=== PATIENT | female | born 1985 | race Caucasian/White ===

== ENCOUNTER → 2019-05-13 | Outpatient (CLI) | payer SELFPAY | END | disposition home or self-care (01) | DX: O20.0 Threatened abortion (principal) | CPT/HCPCS: 36415; 84702 ==

== ENCOUNTER → 2019-05-15 | Outpatient (CLI) | payer SELFPAY | END | disposition home or self-care (01) | LOC: LABWHC1 15:29 | PROVIDERS: ATTEND Obstetrics & Gynecology | DX: O03.9 Complete or unspecified spontaneous abortion without complication (principal) | CPT/HCPCS: 36415; 84702 ==

== ENCOUNTER → 2019-09-04 | Outpatient (CLI) | payer SELFPAY | END | disposition home or self-care (01) | LOC: LABWHC1 07:38 | PROVIDERS: ATTEND Obstetrics & Gynecology | DX: O20.0 Threatened abortion (principal) | CPT/HCPCS: 36415; 84702 ==

== ENCOUNTER → 2019-09-06 | Outpatient (CLI) | payer BC | END | disposition home or self-care (01) | LOC: LABWHC1 08:11 | PROVIDERS: ATTEND Obstetrics & Gynecology | DX: O20.0 Threatened abortion (principal) | CPT/HCPCS: 36415; 84702 ==

== ENCOUNTER → 2019-09-13 | Outpatient (CLI) | payer BC | END | disposition home or self-care (01) | LOC: LABWHC1 09:29 | PROVIDERS: ATTEND Obstetrics & Gynecology | DX: Z34.82 Encounter for supervision of other normal pregnancy, second trimester (principal); Z3A.00 Weeks of gestation of pregnancy not specified | CPT/HCPCS: 36415; 84702 ==

== ENCOUNTER → 2019-09-20 | Outpatient (CLI) | payer BC | END | disposition home or self-care (01) | LOC: LABWHC1 09:41 | PROVIDERS: ATTEND Obstetrics & Gynecology | DX: Z34.82 Encounter for supervision of other normal pregnancy, second trimester (principal) | CPT/HCPCS: 36415; 84702 ==

== ENCOUNTER → 2019-09-27 | Outpatient (CLI) | payer BC | END | disposition home or self-care (01) | LOC: LABWHC1 10:34 | PROVIDERS: ATTEND Obstetrics & Gynecology | DX: O03.9 Complete or unspecified spontaneous abortion without complication (principal) | CPT/HCPCS: 36415; 84702 ==

== ENCOUNTER 2022-12-07 06:06 | Inpatient (IN) | payer BC ==
[2022-12-05 10:33] VITALS: BMI 29.4
[2022-12-07] MEDS ORDERED: LACTATED RINGERS 1,000 ML IV ONE (06:10)
[2022-12-07] MEDS ORDERED: TRANEXAMIC 1,000 MG/100ML-NACL 1,000 MG in EMPTY BAG 1 BAG IV PRN (06:10)
[2022-12-07] MEDS ORDERED: METHYLERGONOVINE 0.2 MG/ML 1 ML AMP IM PRN (06:10)
[2022-12-07] MEDS ORDERED: OXYTOCIN 10 UNIT/ML 1 ML VIAL IM PRN (06:10)
[2022-12-07] MEDS ORDERED: CARBOPROST TROMETHAMINE 250 MCG/ML 1 ML AMP IM PRN (06:10)
[2022-12-07] MEDS ORDERED: miSOPROStoL 200 MCG TAB PO PRN (06:10)
[2022-12-07] MEDS ORDERED: CITRIC ACID-SODIUM CITRATE 15 ML CUP PO ONE (06:10)
[2022-12-07 06:43] LABS: Basophils % (A) 0 %; Eosinophils # (A) 0.2 k/uL (0-0.7); Eosinophils % (A) 2 %; HCT 34.8 % (34.0-46.0); HGB 11.9 gm/dL (11.4-16.0); Lymphocytes # (A) 2.3 k/uL (1.0-4.8); Lymphocytes % (A) 25 %; MCH 31.6 pg (25.0-35.0); MCHC 34.1 g/dL (31.0-37.0); MCV 92.6 fL (80.0-100.0); Mean Platelet Volume 11.9; Monocytes # (A) 0.4 k/uL (0-1.0); Monocytes % (A) 4 %; Neutrophils # (A) 6.2 k/uL (1.3-7.7); Neutrophils % (A) 66 %; Platelet Count 184 k/uL (150-450); RBC 3.76 m/uL (3.80-5.40); RDW 13.7 % (11.5-15.5); WBC 9.3 k/uL (3.8-10.6)
--- NOTE | 2022-12-07 07:13 | P.HPOB ---
History of Present Illness H&P Date: 12/07/22 Chief Complaint: Repeat low transverse with tubal ligation 37-year-old presents at 39 weeks and 6 days for repeat low transverse C- section with tubal ligation. Review of Systems All systems: negative Constitutional: Denies chills, Denies fever Eyes: denies blurred vision, denies pain Ears, nose, mouth and throat: Denies headache, Denies sore throat Cardiovascular: Denies chest pain, Denies shortness of breath Respiratory: Denies cough Gastrointestinal: Denies abdominal pain, Denies diarrhea, Denies nausea, Denies vomiting Genitourinary: Denies dysuria, Denies hematuria Musculoskeletal: Denies myalgias Integumentary: Denies pruritus, Denies rash Neurological: Denies numbness, Denies weakness Psychiatric: Denies anxiety, Denies depression Endocrine: Denies fatigue, Denies weight change Past Medical History Past Medical History: GERD/Reflux Additional Past Medical History / Comment(s): seasonal allergies History of Any Multi-Drug Resistant Organisms: None Reported Past Surgical History: Appendectomy, Section Additional Past Surgical History / Comment(s): wisdom teeth removed Past Anesthesia/Blood Transfusion Reactions: No Reported Reaction Additional Past Anesthesia/Blood Transfusion Reaction / Comment(s): no hx blood transfusion Past Psychological History: Depression Smoking Status: Former smoker Past Alcohol Use History: None Reported Additional Past Alcohol Use History / Comment(s): smoked 10 years 1/2-1 ppd quit once Past Drug Use History: None Reported - Past Family History Father Family Medical History: Cancer, Coronary Artery Disease (CAD), Deep Vein Thrombosis (DVT), Vascular Disorder Additional Family Medical History / Comment(s): hx throat cancer Medications and Allergies Home Medications Medication Instructions Recorded Confirmed Type Pnv,Calcium 72/Iron/Folic Acid 1 tab PO DAILY 12/07/15 12/07/22 History [ Plus Tablet] Ascorbic Acid [Vitamin C] 500 mg PO DAILY 12/05/22 12/07/22 History Cyanocobalamin (Vitamin B-12) 1,000 mcg PO DAILY 12/05/22 12/07/22 History [Vitamin B-12] Magnesium 500 mg PO DAILY 12/05/22 12/07/22 History Sertraline [Zoloft] 50 mg PO DAILY 12/05/22 12/07/22 History Allergies Allergy/AdvReac Type Severity Reaction Status Date / Time No Known Allergies Allergy Verified 12/07/22 06:47 Exam Osteopathic Statement: *. No significant issues noted on an osteopathic structural exam other than those noted in the History and Physical/Consult. Vital Signs Temp Pulse Resp BP 12/07/22 06:29 97.4 F L 70 16 141/83 Intake and Output 12/06/22 12/07/22 12/07/22 22:59 06:59 14:59 Other: Weight 80.286 kg Heart: Regular rate and rhythm Lungs: Clear to auscultation bilaterally Abdomen: Soft, nontender Extremities: Negative Homans sign Results Result Diagrams: 12/07/22 06:25 Abnormal Lab Results - Last 24 Hours (Table) 12/07/22 Range/Units 06:25 RBC 3.76 L (3.80-5.40) m/uL Assessment and Plan (1) Previous section Current Visit: Yes Status: Acute Code(s): Z98.891 - HISTORY OF UTERINE SCAR FROM PREVIOUS SURGERY SNOMED Code(s): 862082814 (2) Family planning Current Visit: Yes Status: Acute Code(s): Z30.09 - ENCOUNTER FOR OTH GENERAL CNSL AND ADVICE ON CONTRACEPTION SNOMED Code(s): 737723485 Plan: 1. Repeat low transverse with tubal ligation
[2022-12-07] MEDS ORDERED: OXYTOCIN 30 UNITS/500 ML NS BAG IV ONE (08:00)
[2022-12-07] MEDS ORDERED: KETOROLAC 15 MG/ML 1 ML VIAL ONE (08:00)
[2022-12-07] MEDS ORDERED: ONDANSETRON 4 MG/2 ML VIAL ONE (08:00)
[2022-12-07] MEDS ORDERED: ePHEDrine 50 MG/ML 1 ML VIAL ONE (08:00)
[2022-12-07] MEDS ORDERED: MORPHINE SULFATE (PF) 0.3 MG/0.3 ML SYR ONE (08:00)
[2022-12-07 09:24] LABS: Large Platelets Present
[2022-12-07 09:26] LABS: RBC Morphology Normal
[2022-12-07] MEDS ORDERED: diphenhydrAMINE 50 MG CAP PO PRN (10:52)
[2022-12-07] MEDS ORDERED: NALOXONE 0.4 MG/ML 1 ML VIAL IV PRN (10:52)
[2022-12-07] MEDS ORDERED: METOCLOPRAMIDE 5 MG/ML 2 ML VIAL IVP PRN (10:52)
[2022-12-07] MEDS ORDERED: diphenhydrAMINE 50 MG/ML 1 ML VIAL IVP PRN ×2 (10:52)
[2022-12-07] MEDS ORDERED: ZOLPIDEM 5 MG TAB PO PRN (10:52)
[2022-12-07] MEDS ORDERED: ONDANSETRON 4 MG/2 ML VIAL IVP PRN (10:52)
[2022-12-07] MEDS ORDERED: diphenhydrAMINE 25 MG CAP PO PRN (10:52)
[2022-12-07] MEDS ORDERED: SIMETHICONE 80 MG CHEWABLE PO PRN (10:52)
[2022-12-07 11:53] LABS: ALT 17 U/L (4-34); AST 28 U/L (14-36); African American GFR (CKD) >90 (>60 ml/min/1.73 sqM); Blood Urea Nitrogen 7 mg/dL (7-17); LDH 219 U/L (120-246); Non-African American GFR(CKD) >90 (>60 ml/min/1.73 sqM); Uric Acid 3.2 mg/dL (3.7-7.4)
[2022-12-07 11:59] LABS: Appearance,Urine Clear (Clear); Bilirubin,Urine Negative (Negative); Blood,Urine Negative (Negative); Color,Urine Colorless; Glucose,Urine (UA) Negative (Negative); Ketones,Urine Negative (Negative); Leukocyte Esterase,Urine Negative (Negative); Nitrite,Urine Negative (Negative); Protein,Urine Negative (Negative); Specific Gravity,Urine 1.008 (1.001-1.035); Urobilinogen,Urine <2.0 mg/dL (<2.0)
[2022-12-07 12:17] LABS: Creatinine,Urine Random 34.6 mg/dL; Protein/Creatinine Ratio,Urine 0.578
[2022-12-07] MEDS: ACETAMINOPHEN TAB 500 MG TAB PO SCH ×2 (12:34→18:09)
[2022-12-07] MEDS: IBUPROFEN 600 MG TAB PO SCH ×2 (15:28→21:07)
[2022-12-07] MEDS: LACTATED RINGERS 1,000 ML IV SCH ×2 (15:28→20:04)
[2022-12-07] MEDS: KETOROLAC 15 MG/ML 1 ML VIAL IVP SCH ×2 (15:30→21:36)
[2022-12-07] MEDS: SENNOSIDES-DOCUSATE SODIUM 1 EACH TAB PO SCH (21:07)
[2022-12-08] MEDS: ACETAMINOPHEN TAB 500 MG TAB PO SCH ×5 (00:14→22:57)
[2022-12-08] MEDS: IBUPROFEN 600 MG TAB PO SCH ×4 (03:39→19:55)
[2022-12-08 06:52] LABS: Basophils % (A) 0 %; Eosinophils # (A) 0.2 k/uL (0-0.7); Eosinophils % (A) 2 %; HCT 34.2 % (34.0-46.0); HGB 11.3 gm/dL (11.4-16.0); Lymphocytes # (A) 1.9 k/uL (1.0-4.8); Lymphocytes % (A) 20 %; MCH 31.2 pg (25.0-35.0); MCHC 33.1 g/dL (31.0-37.0); MCV 94.3 fL (80.0-100.0); Monocytes # (A) 0.4 k/uL (0-1.0); Monocytes % (A) 5 %; Neutrophils # (A) 6.8 k/uL (1.3-7.7); Neutrophils % (A) 72 %; Platelet Count 158 k/uL (150-450); RBC 3.62 m/uL (3.80-5.40); RDW 13.8 % (11.5-15.5); WBC 9.4 k/uL (3.8-10.6)
--- NOTE | 2022-12-08 07:31 | P.PNOBGPC ---
Subjective - Subjective Principal diagnosis: Status post repeat low transverse postop day 1 Interval history: Patient seen and examined. Denies nausea, vomiting, chest pain, shortness of breath or calf pain. Patient reports: Reports appetite normal, Reports voiding normally, Reports pain well controlled, Reports ambulating normally : doing well Objective - Vital Signs Latest vital signs: Vital Signs Temp Pulse Resp BP Pulse Ox 12/08/22 04:00 98 F 85 18 129/78 96 12/08/22 00:15 98 F 71 18 132/84 96 12/07/22 19:58 97.7 F 73 18 138/82 98 12/07/22 15:40 98.1 F 67 16 147/88 98 12/07/22 12:00 70 139/73 12/07/22 10:50 97.8 F 68 16 145/78 99 12/07/22 10:20 64 16 150/83 100 12/07/22 09:50 76 16 156/92 99 12/07/22 09:35 81 16 138/65 96 12/07/22 09:20 82 16 151/77 97 12/07/22 09:05 88 16 152/77 97 12/07/22 08:50 96.5 F L 72 16 138/82 99 Intake and Output 12/07/22 12/08/22 12/08/22 22:59 06:59 14:59 Intake Total 1000 Output Total 2200 Balance -1200 Intake: IV 1000 Invasive Line 1 1000 Output: Urine 2200 Uretheral (Umaña) 1000 Other: # Voids 1 2 - Exam Lungs: bilateral: normal Chest: Normal S1, Normal S2 Extremities: Present: normal Abdomen: Present: normal appearance, soft. Absent: distention, tenderness Incision: Present: normal, dry, intact Uterus: Present: normal, firm - Labs Labs: Abnormal Lab Results - Last 24 Hours (Table) 12/07/22 12/08/22 Range/Units 11:22 06:43 RBC 3.62 L (3.80-5.40) m/uL Hgb 11.3 L (11.4-16.0) gm/dL Creatinine 0.43 L (0.52-1.04) mg/dL Uric Acid 3.2 L (3.7-7.4) mg/dL Assessment and Plan (1) Previous section Current Visit: Yes Status: Resolved Code(s): Z98.891 - HISTORY OF UTERINE SCAR FROM PREVIOUS SURGERY SNOMED Code(s): 414117120 (2) Family planning Current Visit: Yes Status: Resolved Code(s): Z30.09 - ENCOUNTER FOR OT GENERAL CNSL AND ADVICE ON CONTRACEPTION SNOMED Code(s): 408020793 (3) Status post repeat low transverse section Current Visit: Yes Status: Acute Code(s): Z98.891 - HISTORY OF UTERINE SCAR FROM PREVIOUS SURGERY SNOMED Code(s): 522762461 (4) Status post tubal ligation at time of delivery, current hosp Current Visit: Yes Status: Acute Code(s): O80 - ENCOUNTER FOR FULL-TERM UNCOMPLICATED DELIVERY; Z30.2 - ENCOUNTER FOR STERILIZATION SNOMED Code(s): 54326652533409 Plan: 1. Increase ambulation 2. By mouth pain meds
[2022-12-08] MEDS: SENNOSIDES-DOCUSATE SODIUM 1 EACH TAB PO SCH ×2 (08:19→19:55)
--- NOTE | 2022-12-08 08:58 | P.PN ---
Progress Note - Text Progress Note Date: 12/08/22 (710) Anesthesia Postop day 1 Subjective: Status Post section with Duramorph. Doing well without complaint. VAS 3/10. Denies. Afebrile. Gross lower extremity strength intact. Without apparent anesthetic complications. Assessment: Status post with Duramorph postop day 1 Plan: Continue current care with your medical management. Anticipated and the Duramorph section around time today. You may see increased pain needs around this time.
[2022-12-08] MEDS ORDERED: LABETALOL 100 MG TAB PO SCH (16:05)
[2022-12-08] MEDS: LABETALOL 100 MG TAB PO SCH (21:47)
[2022-12-09] MEDS: IBUPROFEN 600 MG TAB PO SCH ×2 (02:04→08:08)
[2022-12-09] MEDS: ACETAMINOPHEN TAB 500 MG TAB PO SCH (05:02)
[2022-12-09 08:36] VITALS: BP 143/80; PULSE 66; RESP 16; TEMP 98
--- NOTE | 2022-12-09 08:42 | P.DS ---
Providers Date of admission: 12/07/22 06:06 Expected date of discharge: 12/09/22 Attending physician: Kitty Flynn Primary care physician: Stated None - Discharge Diagnosis(es) (1) Previous section Current Visit: Yes Status: Resolved (2) Family planning Current Visit: Yes Status: Resolved (3) Status post repeat low transverse section Current Visit: Yes Status: Acute (4) Status post tubal ligation at time of delivery, current hosp Current Visit: Yes Status: Acute Hospital Course: Pt presented for RLTCS with TL. She underwent this procedure with no complications. Post operative course was uneventful. She denies N/V, CP, SOB or calf pain. Pt will be didscharged home POD #2 in stable condition to follow up with me in 1 week. Plan - Discharge Summary Discharge Rx Participant: No New Discharge Prescriptions: New Ibuprofen [Motrin] 600 mg PO Q6HR PRN #30 tab PRN Reason: Mild Pain Or Fever >= 100.5 No Action Pnv,Calcium 72/Iron/Folic Acid [ Plus Tablet] 1 tab PO DAILY Cyanocobalamin (Vitamin B-12) [Vitamin B-12] 1,000 mcg PO DAILY Sertraline [Zoloft] 50 mg PO DAILY Magnesium 500 mg PO DAILY Ascorbic Acid [Vitamin C] 500 mg PO DAILY Discharge Medication List Pnv,Calcium 72/Iron/Folic Acid [ Plus Tablet] 1 tab PO DAILY 12/07/15 [History] Ascorbic Acid [Vitamin C] 500 mg PO DAILY 12/05/22 [History] Cyanocobalamin (Vitamin B-12) [Vitamin B-12] 1,000 mcg PO DAILY 12/05/22 [History] Magnesium 500 mg PO DAILY 12/05/22 [History] Sertraline [Zoloft] 50 mg PO DAILY 12/05/22 [History] Ibuprofen [Motrin] 600 mg PO Q6HR PRN #30 tab 12/09/22 [Rx] Follow up Appointment(s)/Referral(s): Kitty Flynn DO [Doctor of Osteopathic Medicine] - 01/18/23 3:45 pm (Post Op appointment 12-19-2022 at 1:45)
[2022-12-09] MEDS: LABETALOL 100 MG TAB PO SCH (09:20)
== END 2022-12-09 11:22 | disposition home or self-care (01) | DRG 798 ==
LOC: 4FBP 06:06
PROVIDERS: ADMIT Obstetrics & Gynecology; ATTEND Obstetrics & Gynecology
PROC: 0UB70ZZ Excision of Bilateral Fallopian Tubes, Open Approach (ICD-10-PCS; 2022-12-07)
PROC: 10E0XZZ Delivery of Products of Conception, External Approach (ICD-10-PCS; principal; 2022-12-07 08:00)
DX: O34.211 Maternal care for low transverse scar from previous cesarean delivery (principal); Z37.0 Single live birth; Z30.2 Encounter for sterilization; Z3A.39 39 weeks gestation of pregnancy; Z79.899 Other long term (current) drug therapy; Z87.891 Personal history of nicotine dependence
CPT/HCPCS: 81003; 82565; 82570; 83615; 84156; 84450; 84460; 84520; 84550; 85025; 86850; 86900; 86901; 88302